=== PATIENT | female | born 1990 | race Caucasian/White ===

== ENCOUNTER 2018-02-16 01:01 | Emergency (ER) | payer MEDICAID, OTHER ==
[~2018-02-16] VITALS: Ht 167.6 cm; Wt 62.3 kg
[~2018-02-16 01:01] MED LIST: DOCU-131 PO; IBUP-1222 PO; OXYC-302 PO; PREN1TAB28 PO
[2018-02-16 01:05] VITALS: BP 117/82
[2018-02-16] MEDS ORDERED: IBUPROFEN 200 MG TABLET ONE (02:17)
[2018-02-16] MEDS ORDERED: ACETAMINOPHEN 325 MG TABLET ONE (02:17)
[2018-02-16] MEDS ORDERED: IBUPROFEN 200 MG TABLET PO ONE (02:30)
[2018-02-16] MEDS ORDERED: ACETAMINOPHEN 325 MG TABLET PO ONE (02:30)
== END 2018-02-16 02:58 | disposition home or self-care (01) ==
LOC: ED 02:49
DX: S93.492A Sprain of other ligament of left ankle, initial encounter (principal); X50.1XXA Overexertion from prolonged static or awkward postures, initial encounter; Y93.89 Activity, other specified; Y92.096 Garden or yard of other non-institutional residence as the place of occurrence of the external cause; Y99.8 Other external cause status
CPT/HCPCS: 99284

== ENCOUNTER 2018-05-25 20:23 | Emergency (ER) | payer SELFPAY ==
[~2018-05-25] VITALS: Ht 167.6 cm; Wt 63.3 kg
[2018-05-25 20:30] VITALS: BP 105/57
[2018-05-25] MEDS ORDERED: FAMOTIDINE 20 MG TABLET ONE (20:51)
[2018-05-25] MEDS ORDERED: FAMOTIDINE 20 MG TABLET PO ONE (21:00)
== END 2018-05-25 21:48 | disposition home or self-care (01) ==
LOC: ED 21:10
DX: T78.40XA Allergy, unspecified, initial encounter (principal); X58.XXXA Exposure to other specified factors, initial encounter
CPT/HCPCS: 99284; J7512; Q0177